=== PATIENT | male | born 1965 | race Two or more races ===

== ENCOUNTER 2018-08-04 16:16 | Emergency (ER) | payer SELFPAY ==
[~2018-08-04] VITALS: Ht 167.6 cm; Wt 81.6 kg
[2018-08-04 16:27] VITALS: BP 103/65
[2018-08-04] MEDS ORDERED: NAPROXEN 500 MG TABLET PO STA (16:35)
[2018-08-04] MEDS ORDERED: HYDROcodone/APAP 5/325MG 1 TAB TABLET PO ONE (16:45)
[2018-08-04] MEDS ORDERED: DICL50TA4 PO (17:36)
[2018-08-04] MEDS ORDERED: GABA-585 PO (17:36)
[2018-08-04] MEDS ORDERED: METH4TAB2 PO (17:36)
--- NOTE | 2018-08-04 17:36 | PHYS DOC ---
Past Medical History Past Medical History: No Pertinent History (IZZY SHARPE APRN) Past Surgical History: No Surgical History (IZZY SHARPE APRN) Alcohol Use: None Drug Use: None (IZZY SHARPE APRN) Adult General Chief Complaint Chief Complaint: FOOT INJURY PAIN HPI HPI Patient is a 53 year old female with no significant medical history who presents to the ED today complaining 7 out of 10 left foot pain that began 3 days ago, patient states he was trying to lift a 5 pound gallon of paint when he heard a snap sound from his left foot. Patient is complaining of pain on top of the foot. He states the pain is worse on weight-bearing, he states he has been unable to bear weight to the left lower extremity since then. Patient denies any previous history of gout or arthritis. Patient describes the pain as sharp and constant. She is [place]-speaking and family has been interpreting, he understands some [place]. (IZZY SHARPE APRN) Review of Systems Review of Systems Constitutional: Denies fever or chills [] Musculoskeletal: Reports left foot pain. Integument: Denies rash or skin lesions [] Neurologic: Denies headache, focal weakness or sensory changes [] All other systems were reviewed and found to be within normal limits, except as documented in this note. (IZZY SHARPE APRN) Current Medications Current Medications Current Medications Medications (Trade) Dose Ordered Sig/Yeimy Start Time Stop Time Status Last Admin Dose Admin Acetaminophen/ Hydrocodone Bitart (Lortab 5/325) 2 tab 1X ONCE 08/04/18 16:45 08/04/18 16:46 DC 08/04/18 17:01 2 TAB Naproxen (Naprosyn) 500 mg 1X STAT 08/04/18 16:35 08/04/18 16:41 DC 08/04/18 17:00 500 MG (KIRAN GARCIA MD) Allergies Allergies Allergies Coded Allergies Type Severity Reaction Last Updated Verified No Known Drug Allergies 08/04/18 No (KIRAN GARCIA MD) Physical Exam Physical Exam Constitutional: Well developed, well nourished, no acute distress, non-toxic appearance. [] Skin: Warm, dry, no erythema, no rash. [] Back: No tenderness, no CVA tenderness. [] Extremities: Left foot with diffuse soft tissue swelling on top of the foot, no erythema, no ecchymosis, no tenderness of the navicular bone or the base of the fifth metatarsal of the left foot. Diffuse tenderness on top of the left foot. Full passive range of motion to the left foot and toes. +2 left pedal pulse. Cap refill less than 2 seconds the left toes. Neurologic: Alert and oriented X 3, normal motor function, normal sensory function, no focal deficits noted. [] Psychologic: Affect normal, judgement normal, mood normal. [] (IZZY SHARPE APRN) Current Patient Data Vital Signs Vital Signs Date Time Temp Pulse Resp B/P (MAP) Pulse Ox O2 Delivery O2 Flow Rate FiO2 08/04/18 17:01 16 99 Room Air 08/04/18 16:27 98.4 88 103/65 (78) 98.4 (KIRAN GARCIA MD) EKG EKG [] (IZZY SHARPE APRN) Radiology/Procedures Radiology/Procedures [] (IZZY SHARPE APRN) Course & Med Decision Making Course & Med Decision Making Pertinent Labs and Imaging studies reviewed. (See chart for details) This is a 53-year-old male patient presenting to the ED today with left foot pain that began 3 days ago, patient was trying to lift a 5 gallon bucket of paint when he heard a snap sound from the foot. Left foot x-rays interpreted by Dr Garcia was negative for any acute findings. Orthopedic shoe was provided. Ice elevation encouraged, discharged with Medrol Dosepak, diclofenac, gabapentin. Provided orthopedic doctor for follow-up in 1-2 weeks. (IZZY SHARPE APRN) Course & Med Decision Making Staff Physician Addendum: I was working in the ER during the course of this patient's visit. I was available for consultation as needed, but I was not directly involved in the care of this patient. (KIRAN GARCIA MD) Dragon Disclaimer Dragon Disclaimer This electronic medical record was generated, in whole or in part, using a voice recognition dictation system. (IZZY SHARPE APRN) Departure Departure Impression: Primary Impression: Left foot pain Disposition: HOME, SELF-CARE Condition: STABLE Referrals: DANIELA YANEZ II, MD Follow up in one week Patient Instructions: Musculoskeletal Pain Additional Instructions: You were evaluated in the emergency room for left foot pain, your left foot x- rays were negative for any acute findings. We provided you an orthopedic shoe, wear it as tolerated, try to ice and elevate the extremity. Take the prescribed medications as ordered. Follow-up with your own doctor or the provided orthopedic doctor in one week Scripts Gabapentin (GABAPENTIN ) 100 Mg Capsule 100 MG PO TID for NEUROGENIC PAIN, #30 CAP Prov: IZZY SHARPE APRN 08/04/18 Methylprednisolone (MEDROL) 4 Mg Tab.ds.pk 1 PKG PO UD, #1 PKG Prov: IZZY SHARPE APRN 08/04/18 Diclofenac Sodium (DICLOFENAC SODIUM) 50 Mg Tablet.dr 1 TAB PO BID, #20 TAB 0 Refills Prov: IZZY SHARPE APRN 08/04/18 IZZY SHARPE APRN Aug 04, 2018 17:36 KIRAN GARCIA MD Aug 04, 2018 22:36
--- NOTE | 2018-08-04 18:22 | RAD ---
Right FOOT AP LATERAL OBLIQUE Clinical Indication: PATIENT INJURED RIGHT FOOT SUNDAY. EACH DAY PAIN HAS GOTTEN WORSE. PAIN AND SWELLING ON MEDIAL SIDE OF FOOT, 1ST MP JOINT / 1ST METATARSUS AREA. Comparison: None. Findings: There is no acute fracture or dislocation. Mild joint space narrowing of the first MTP. There is no juxta-articular erosion. Mineralization is normal. No bony erosion. There is small calcaneal bone spurs. There is mild soft tissue swelling medial to the first MTP. IMPRESSION: No acute fracture. Electronically signed by: Santhosh Shipley MD (08/04/2018 6:20 PM) [facility]
== END 2018-08-04 18:09 | disposition home or self-care (01) ==
LOC: ER 16:16
DX: M79.672 Pain in left foot (principal); X50.9XXA Other and unspecified overexertion or strenuous movements or postures, initial encounter; Y93.89 Activity, other specified; Y92.89 Other specified places as the place of occurrence of the external cause; Y99.8 Other external cause status
CPT/HCPCS: 73630; 99284